=== PATIENT | female | born 1980 | race Caucasian/White ===

== ENCOUNTER 2017-11-07 08:00 | Emergency (ER) | payer OTHER ==
[~2017-11-07] VITALS: Ht 152.4 cm; Wt 56.7 kg
[~2017-11-07 08:00] MED LIST: AMOXICILLIN 50500 MG PO; NORCO 5-325 TA1 EACH PO; PENICILLIN V P500 MG PO
[2017-11-07] MEDS ORDERED: ADDERALL 15 MG15 MG PO (08:17)
[2017-11-07] MEDS ORDERED: XANAX1 MG PO (08:17)
[2017-11-07] MEDS ORDERED: DEPRESSION MED (08:17)
[2017-11-07 08:26] VITALS: BP 120/84
== END 2017-11-07 08:27 | disposition home or self-care (01) ==
LOC: M.ERS 08:00
DX: K59.00 Constipation, unspecified (principal); F90.9 Attention-deficit hyperactivity disorder, unspecified type; F41.9 Anxiety disorder, unspecified; F32.9 Major depressive disorder, single episode, unspecified; F17.200 Nicotine dependence, unspecified, uncomplicated